=== PATIENT | female | born 1975 | race Caucasian/White ===

== ENCOUNTER 2019-05-08 13:58 | Outpatient (CLI) | payer OTHER ==
[~2019-05-08] VITALS: Ht 160 cm; Wt 58.6 kg
[~2019-05-08 13:58] MED LIST: MELO7.5O PO; METF500T17 PO
[2019-05-08] MEDS ORDERED: IRON SUCROSE COMPLEX 100MG/5ML IV ONE (14:10)
[2019-05-08 14:25] VITALS: BP 99/68
[2019-05-08] MEDS ORDERED: IRON SUCROSE COMPLEX 200 MG in SODIUM CHLORIDE 0.9% 100 ML IV ONE (14:30)
[2019-05-08 15:50] VITALS: BP 101/65
== END 2019-05-08 23:59 | disposition home or self-care (01) ==
LOC: INFUSION 13:58
PROVIDERS: ATTEND Family Medicine
DX: E61.1 Iron deficiency (principal); Z96.649 Presence of unspecified artificial hip joint
CPT/HCPCS: 96365; J1756